=== PATIENT | female | born 1990 | race Caucasian/White ===

== ENCOUNTER → 2017-09-20 | Outpatient (CLI) | payer OTHER ==
[~2017-09-20] MED LIST: CLR10 PO; FLNIN NAE; LEVOIUD
== END | disposition home or self-care (01) ==
LOC: C.LABSPEC 11:03
PROVIDERS: ATTEND Obstetrics & Gynecology
DX: Z34.81 Encounter for supervision of other normal pregnancy, first trimester (principal); Z3A.00 Weeks of gestation of pregnancy not specified

== ENCOUNTER → 2017-09-28 | Outpatient (CLI) | payer BC ==
[2017-09-28 16:18] LABS: BASO % 0.2 %; BASO ABS # 0.02 K/uL (0-0.2); EOS % 0.8 %; EOS ABS # 0.07 K/uL (0-0.5); HEMATOCRIT 38.3 % (37-47); HEMOGLOBIN 13.2 g/dL (12.0-16.0); IG# 0.02 K/uL (0.00-0.02); LYMPH % 17.6 %; LYMPH ABS # 1.58 K/uL (1.2-3.4); MEAN CELL VOLUME 91.4 fL (80-100); MEAN CORPUSCULAR HEMOGLOBIN 31.5 pg (25-34); MEAN CORPUSCULAR HGB CONC 34.5 g/dl (32-36); MEAN PLATELET VOLUME 10.4 fL (7.4-10.4); MONO % 4.9 %; MONO ABS # 0.44 K/uL (0.11-0.59); NEUT % 76.3 %; NEUT ABS # 6.83 K/uL (1.4-6.5); PLATELET COUNT 235 K/uL (130-400); RED CELL DISTRIBUTION WIDTH CV 12.4 % (11.5-14.5); WHITE BLOOD COUNT 8.96 K/uL (4.8-10.8)
== END | disposition home or self-care (01) ==
LOC: C.LAB1850 15:36
PROVIDERS: ATTEND Obstetrics & Gynecology
DX: Z34.81 Encounter for supervision of other normal pregnancy, first trimester (principal)

== ENCOUNTER → 2017-09-28 | Outpatient (CLI) | payer BC | END | disposition home or self-care (01) | LOC: C.PAPS 18:17 | PROVIDERS: ATTEND Obstetrics & Gynecology | DX: Z34.81 Encounter for supervision of other normal pregnancy, first trimester (principal); R87.616 Satisfactory cervical smear but lacking transformation zone ==

== ENCOUNTER 2018-04-23 07:51 | Inpatient (IN) ==
[2018-04-23] MEDS ORDERED: LACTATED RINGER'S 1,000 ML IV PRN ×3 (08:24→16:14)
[2018-04-23] MEDS ORDERED: OXYTOCIN 30 UNITS/500 ML BAG IV PRN ×2 (08:24)
[2018-04-23 08:47] LABS: Hematocrit (blood only) 31.7 % (37-47); Hemoglobin 10.2 g/dL (12.0-16.0); Mean Corpuscular Volume 83.6 fL (80-100); Platelet Count 231 K/uL (130-400); RDW Coefficient of Variation 13.5 % (11.5-14.5); Red Blood Count 3.79 M/uL (4.2-5.4); White Blood Count 9.49 K/uL (4.8-10.8)
[2018-04-23] MEDS: LACTATED RINGER'S 1,000 ML IV SCH ×2 (09:00→17:20)
[2018-04-23 09:04] LABS: Mean Corpuscular Hgb Conc 32.2 g/dL (32-36)
--- NOTE | 2018-04-23 09:38 | History & Physical Report ---
Date of Service April 23, 2018 Assessment & Plan (1) Encounter for induction of labor: Pt is a 27 year old at 39+1 for induction of labor 2/2 hx of fast labor with GBS + mother. - Admission cervical exam 75/-2 - LR @ 125 - FHT Cat 1 - Pitocin 30 units in 500 mls @ 1 mls/hr -> up by 2 - Monitor FHT/toco - Monitor BP - Routine labor care - Anticipate Vaginal , Expectant management History of Present Illness Primary Care Provider: NO PCP Pt is a 27 year old with lmp of 07/27/2017 was discordant with 1st trimester ultrasound on 10/30/2017 at final EDC of 04/15/2018 who presents at 41+1 for induction of labor for post term gestation. She notes some abd pressure but denies contractions. Currently denies nausea, vomiting, RUQ pain, swelling, headache, blurred vision, vaginal bleeding, or decreased movement. course was significant for Arnold chiari type 1. Cervical exam in the office on 04/20 @ 40+5 was 2/75/-3, today 275/-2. Pt resting comfortably in bed no acute complaints. labs First Visit: 9+0 Weight Gain: 28.09 lbs O+ antibody neg Last HGB: 11.3 01/23/2018 DM screen:88 01/23/2018 Last U/S @ 38 weeks showed cephalic Rubella Immune HIV neg Pap neg 09/28/17 EGA:41+1 BP Range 136/70-100/60 U/A: mixed molly GBS negative RPR Negative HBsAG Negative GC/ Chlamydia negative Allergies Allergy/AdvReac Type Severity Reaction Status Date / Time No Known Allergies Allergy Mild Verified 03/03/09 19:43 Home Medications Home Medications Medication Instructions Recorded Confirmed Type MIRENA #0 11/09/10 History Fluticasone Propionate (Flonase 2 spry ASTON DAILY #10 01/04/11 Rx Nasal [place] *) Loratadine (Claritin) 10 mg PO DAILY #14 01/04/11 Rx None (Patient States No Home Meds) #0 01/04/11 History Patient History Social History Preferred Language: Kosovan Communication Ability: Effective 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 Galvan induced SGA [employer] History GYNHX: menearche @ 16, monthly cycles 28 days, normal amount and duration, neg pap 2009 ascus, no hx PID or STDS PMHX: wisdom teeth extraction, Chiari malformation 2008 Varicella IgG +, Lives with cat spouse changed litter Allergies: NKDA Review of Systems All systems reviewed & are unremarkable except as noted in HPI & below Physical Exam Vital Signs (Past 24 Hours): Last Vital Signs Temp 37.2 C 04/23/18 08:14 Pulse 99 H 04/23/18 08:14 Resp 18 04/23/18 08:14 BP 129/85 04/23/18 08:14 Constitutional: WD/WN, vitals as above Eyes: normal visual davila by confrontation Respiratory: normal respiratory effort, lungs clear to auscultation Cardiovascular: RRR, no murmur, no edema Extremities: no calf tenderness Gastrointestinal (Abdomen): normal bowel sounds, soft, nontender, no hepatosplenomegaly (gravid belly) Skin: no rashes, warm and dry Results & Data Laboratory Results 04/23/18 Range/Units 08:35 WBC 9.49 (4.8-10.8) K/uL RBC 3.79 L (4.2-5.4) M/uL Hgb 10.2 L (12.0-16.0) g/dL Hct 31.7 L (37-47) % MCV 83.6 (80-100) fL MCH 26.9 (25-34) pg MCHC 32.2 (32-36) g/dL RDW Std Deviation 41.0 (36.4-46.3) fL RDW Coeff of Del 13.5 (11.5-14.5) % Plt Count 231 (130-400) K/uL MPV 10.0 (7.4-10.4) fL Medications Administered Current Inpatient Medications Lactated Ringer's (Lr) 1,000 mls @ 999 mls/hr IV .Q1H1M PRN PRN Reason: (Pre-Anesthesia) Stop: 05/23/18 08:23 Lactated Ringer's (Lr) 1,000 mls @ 125 mls/hr IV .Q8H MALINA Stop: 04/25/18 08:29 Last Admin: 04/23/18 09:00 Dose: 125 mls/hr Documented by: Oxytocin (Pitocin) 30 units in 500 mls @ 1 mls/hr IV .Q24H PRN; Protocol PRN Reason: Labor Induction/Augmentation Stop: 04/25/18 08:23 Last Admin: 04/23/18 09:24 Dose: 0.06 units/hr, 1 mls/hr Documented by: Oxytocin (Pitocin) 30 units in 500 mls @ 333.333 mls/hr IV .Q1H30M PRN; Protocol PRN Reason: Bleeding Control Stop: 05/23/18 08:23 Lactated Ringer's (Lr) 1,000 mls @ 999 mls/hr IV .Q1H1M PRN PRN Reason: Tachysystole Stop: 04/25/18 08:23 Code Status & VTE Plan Code Status Full Code Resident Activity Tracking Resident Involvement: Resident Care Provided Care Provided: Adult Hospital Medicine
--- NOTE | 2018-04-23 14:46 | Labor Progress Brief Note ---
Date of Service April 23, 2018 Subjective Tolerating contractions well Assessment & Plan (1) Encounter for induction of labor: IOL due to post term Continue current management Physical Exam Vital Signs (Past 24 Hours): Last Vital Signs Temp 36.5 C 04/23/18 12:00 Pulse 68 04/23/18 11:56 Resp 18 04/23/18 12:00 BP 120/75 04/23/18 11:56 Physical Exam: FHT Cat 1 [place] Q2m Pit @ 11 Cvx /-2 AROM Clear
[2018-04-23] MEDS ORDERED: BUPIVACAINE 0.25% 30 ML VIAL ONE (14:57)
[2018-04-23] MEDS ORDERED: fentaNYL 2MCG/ML ROPIV 1.25MG/ML 100 ML BAG EPI ONE (14:58)
[2018-04-23] MEDS ORDERED: ePHEDrine sulfate 50 MG/ML AMP ONE (14:58)
[2018-04-23] MEDS ORDERED: fentaNYL citrate 100 MCG/2 ML VIAL ONE (14:58)
--- NOTE | 2018-04-23 15:27 | Anesthesiology Consultation ---
Date of Service April 23, 2018 Assessment & Plan Chart Review Chart Review: Patient NOT seen in Pre Admission Testing and Acceptable Risk for Labor Epidural Consults Requested none ASA ASA2 Proposed Anesthesia Anesthesia Type: Labor Epidural Risk / Benefits Reviewed With: PT / POA / Parent / Guardian, Accepts Plan and Informed Consent Obtained NPO Date Last Intake of Fluids: 04/23/18 Time Last Intake of Fluids: 15:30 Last Intake of Fluids Comment: Ice chips Date Last Intake of Solids: 04/23/18 Time Last Intake of Solids: 07:00 History Height/Weight Height: 5 ft 7 in Weight: 80.739 kg Allergies Allergy/AdvReac Type Severity Reaction Status Date / Time No Known Allergies Allergy Mild Verified 03/03/09 19:43 Medications Home Medications Medication Instructions Recorded Confirmed Last Taken vit-iron fum-folic ac 1 tab PO DAILY 04/23/18 04/23/18 04/22/18 09:00 [ Vitamin] Active Medications Generic Name Dose Route Start Last Admin Trade Name Freq PRN Reason Stop Dose Admin Lactated Ringer's 1,000 mls @ 125 mls/hr 04/23/18 08:30 04/23/18 09:00 Lr IV 04/25/18 08:29 125 mls/hr .Q8H MALINA Administration Oxytocin 30 units in 500 mls @ 11 mls/hr 04/23/18 08:24 04/23/18 12:05 Pitocin IV 04/25/18 08:23 0.66 units/hr .Q24H PRN 11 mls/hr Labor Induction/Augmentation Titration Protocol 0.66 UNITS/HR Past Anesthesia History No Family Hx of Anesthesia Complications Motion Sickness Screening History of Motion Sickness: No Social History Smoking Status: Former smoker Do You Dip or Chew Tobacco: No Hx Alcohol Use: No Hx Substance Use: No Exercise / Class Metabolic Activity III < 4 Walking/Shop/Light housework Negative for chest pain or shortness of breath. Review of Systems Patient denies numbness, tingling or weakness in his lower extremities. Patient denies numbness, tingling or weakness in upper extremities. Patient denies history of abnormal bleeding or bleeding disorder. Patient terrance es active use of anticoagulants other than low dose aspirin. Patient denies active symptoms of GERD. Physical Exam Vital Signs Last Vital Signs Temp 36.5 C 04/23/18 12:00 Pulse 68 04/23/18 11:56 Resp 18 04/23/18 12:00 BP 120/75 04/23/18 11:56 Constitutional not obese (Gravid uterus) ENMT Mouth: no TMJ abnormality and oral opening not small Thyromental Distance: > or= 3.5 Finger Breadths Mallampati Class: I Neck normal visual inspection; neck extension not limited Respiratory normal respiratory effort Auscultation: lungs clear to auscultation bilaterally Cardiovascular Rate/Rhythm: regular rate and regular rhythm Heart Sounds: no murmur Psychiatric A+Ox3, euthymic affect Orientation: alert and oriented x 3 Testing Laboratory Results 04/23/18 08:35
[2018-04-23] MEDS ORDERED: NALBUPHINE HCL INJ 10 MG/ML AMP IV PRN (16:14)
[2018-04-23] MEDS ORDERED: NALOXONE HCL 1 MG in SODIUM CHLORIDE 0.9% 1000ML 1,000 ML IV PRN (16:14)
[2018-04-23] MEDS ORDERED: ONDANSETRON INJ 2 MG/ML 2 ML VIAL IV PRN (16:14)
[2018-04-23] MEDS ORDERED: fentaNYL 2MCG/ML ROPIV 1.25MG/ML 100 ML BAG EPI PRN (16:14)
[2018-04-23] MEDS ORDERED: NALOXONE HCL 0.4 MG/1 ML VIAL/CARP IV PRN (16:14)
[2018-04-23] MEDS ORDERED: ePHEDrine sulfate 50 MG/ML AMP IV PRN (16:14)
[2018-04-23] MEDS ORDERED: DiphenhydrAMINE HCL 50 MG/ML VIAL IV PRN (16:14)
--- NOTE | 2018-04-23 22:28 | Procedure Note ---
Vaginal Delivery Summary Date of Service April 23, 2018 Patient pushed to deliver a viable male infant in DOA position. Head restituted occiput to maternal R. A very tight nuchal cord was reduced over the infant's head. The next push delivered the shoulders and body. Although the infant made one respiratory effort immediately upon emergence, the body was limp and pale. Umbilical cord was clamped and cut and the infant was taken to the warmer for nursing attention. Dr. Rosario joined in the resuscitation efforts; see his notes for details. The placenta delivered spontaneously and was intact with a 3VC. No lacerations of the cervix, vagina or perineum required repair. Of note, a small window in the labia minora at their apex just beneath the clitoris became evident during the phase. This was fully epithelialized and not new; very likely it represented healed laceration from prior delivery. This broke open during the current , and is hemostatic / did not require repair, as it is anatomically normal in its current opened state. The fundus is firm and lochia is minimal at present.
[2018-04-23] MEDS ORDERED: IBUPROFEN 600 MG TAB PO ONE (23:37)
[2018-04-24] MEDS ORDERED: BENZOCAINE 20% AER SPR 82.5 GM CAN EXT PRN (00:40)
[2018-04-24] MEDS ORDERED: OXYCODONE/ACETAMINOPHEN 5mg/325mg TAB PO PRN (00:40)
[2018-04-24] MEDS ORDERED: SUPERCREAM 0.870% 15 GM JAR EXT PRN (00:40)
[2018-04-24] MEDS ORDERED: HYDROCORTISONE ACETATE 25 MG SUPP PR PRN (00:40)
[2018-04-24] MEDS ORDERED: DIPHTHERIA/TETANUS/PERTUSSIS 0.5 ML SYR/VIAL IM ONE (00:40)
--- NOTE | 2018-04-24 02:43 | Anesthesia Procedure Note ---
Date of Service April 24, 2018 Anesthesia Post Epidural Note Vital Signs Vital Signs: Temp Pulse Resp BP Pulse Ox 37.1 C 91 H 18 131/79 100 04/24/18 00:35 04/24/18 00:35 04/24/18 00:35 04/24/18 00:35 04/23/18 22:17 Pain Intensity Lower Abdomen: Pain Intensity: 0 Notes Mental Status: alert / awake / arousable and participated in evaluation Nausea / Vomiting: adequately controlled Pain: adequately controlled Airway Patency, RR, SpO2: stable & adequate BP & HR: stable & adequate Hydration State: stable & adequate Neuraxial Anesthesia: was administered and sensory block is resolving Anesthetic Complications: no major complications apparent and Pt Satisfied with anesthetic care Epidural: Removed without complications and With tip intact
[2018-04-24] MEDS: IBUPROFEN 600 MG TAB PO PRN ×4 (04:09→20:43)
--- NOTE | 2018-04-24 06:43 | Obstetrical Progress Note ---
Date of Service April 24, 2018 Assessment & Plan (1) Status post vaginal delivery: Patient is a 27 year old PPD 1 s/p -Vital signs WNL bp 118/79 T36.7, -no si/sx of anemia. -Pt is doing clinically well -Continue to encourage ambulation as tolerated, Monitor and control pain with m otrin prn, Continue diet as tolerated. -Continue to support and encourage breast feeding -Routine care Supervising Physician Co-Signing Physician Notes I have examined the patient and agree with the resident note above. Subjective Pt sitting in bed with dad and baby resting on the couch at the foot of the bed. No acute events overnight. Patient is tolerating her diet, ambulating, passing gas and voiding, still no bm. Reports significant lochia although it is decreasing. Pt had elevated BP overnight endorsed nausea but specifically denied H/A, chest pain, RUQ pain, palpitations and uti syx. No concerns at this time pain is well controlled Physical Exam Vital Signs (Past 24 Hours): Last Vital Signs Temp 36.7 C 04/24/18 03:52 Pulse 79 04/24/18 03:52 Resp 18 04/24/18 03:52 BP 118/79 04/24/18 03:52 Pulse Ox 100 04/23/18 22:17 Constitutional: WD/WN, vitals as above Respiratory: normal respiratory effort, lungs clear to auscultation Cardiovascular: RRR, no murmur, no edema Extremities: no calf tenderness Gastrointestinal (Abdomen): normal bowel sounds, soft, nontender, no hepatosplenomegaly (Firm below the umbilicus) Skin: no rashes, warm and dry Results & Data Laboratory Results 04/23/18 Range/Units 08:35 WBC 9.49 (4.8-10.8) K/uL RBC 3.79 L (4.2-5.4) M/uL Hgb 10.2 L (12.0-16.0) g/dL Hct 31.7 L (37-47) % MCV 83.6 (80-100) fL MCH 26.9 (25-34) pg MCHC 32.2 (32-36) g/dL RDW Std Deviation 41.0 (36.4-46.3) fL RDW Coeff of Del 13.5 (11.5-14.5) % Plt Count 231 (130-400) K/uL MPV 10.0 (7.4-10.4) fL Medications Administered Current Inpatient Medications Acetaminophen (Tylenol) 650 mg PO Q6H PRN PRN Reason: Pain/BLANC/Fever Stop: 05/24/18 00:39 Benzocaine (Dermoplast Pain Relieving [place]) 1 appln EXT PRN PRN PRN Reason: Perineal Discomfort Stop: 05/24/18 00:39 Last Admin: 04/24/18 03:41 Dose: 1 appln Documented by: Cocaine HCl (Supercream 0.870%) 1 gm EXT BID PRN PRN Reason: Hemorrhoidal Inflammation Stop: 05/08/18 00:39 Docusate Sodium (Colace) 100 mg PO BID [facility] Stop: 05/24/18 08:59 Hydrocortisone (Anusol Hc) 25 mg [place] BID PRN PRN Reason: Hemorrhoidal Inflammation Stop: 05/24/18 00:39 Oxytocin (Pitocin) 30 units in 500 mls @ 333.333 mls/hr IV .Q1H30M PRN; Protocol PRN Reason: Bleeding Control Stop: 05/23/18 08:23 Ibuprofen (Motrin) 600 mg PO Q4H PRN PRN Reason: Pain/BLANC/Cramping/Fever Stop: 05/24/18 00:39 Last Admin: 04/24/18 04:09 Dose: 600 mg Documented by: Oxycodone/Acetaminophen (Percocet 5mg/325mg) 1 tab PO Q4H PRN PRN Reason: Pain not relieved by... Stop: 05/08/18 00:39 Prenat Multivit/[place]/Iron/Folic Ac ( Vitamin) 1 tab PO QAM [facility] Stop: 05/24/18 08:59 Resident Activity Tracking Resident Involvement: Resident Care Provided Care Provided: Adult Hospital Medicine
[2018-04-24 07:26] LABS: Hematocrit (blood only) 32.8 % (37-47); Hemoglobin 10.6 g/dL (12.0-16.0); Mean Corpuscular Hgb Conc 32.3 g/dL (32-36); Mean Platelet Volume 9.9 fL (7.4-10.4); Platelet Count 240 K/uL (130-400); RDW Coefficient of Variation 13.3 % (11.5-14.5); RDW Standard Deviation 40.6 fL (36.4-46.3); Red Blood Count 3.95 M/uL (4.2-5.4); White Blood Count 15.02 K/uL (4.8-10.8)
[2018-04-24] MEDS: DOCUSATE SODIUM 100 MG CAP PO SCH ×2 (07:43→20:43)
[2018-04-24] MEDS: PRENATAL VITAMIN 1 TAB PO SCH (07:43)
[2018-04-24] MEDS: ACETAMINOPHEN 325 MG TAB PO PRN (16:08)
[2018-04-25] MEDS: ACETAMINOPHEN 325 MG TAB PO PRN ×3 (00:45→15:39)
[2018-04-25] MEDS: IBUPROFEN 600 MG TAB PO PRN ×3 (00:46→15:38)
--- NOTE | 2018-04-25 07:49 | Obstetrical Progress Note ---
Date of Service April 25, 2018 Assessment & Plan (1) Status post vaginal delivery: Patient is a 27 year old PPD 1 s/p -Vital signs WNL bp 133/80 T37.3, -Hemoglobin is 10.6 on ppd1 down from 10.2 on admission. no si/sx of anemia. -Pt is doing clinically well -Continue to encourage ambulation as tolerated, Monitor and control pain with motrin prn, Continue diet as tolerated. -Plans to bottle feed -Counseled patient on discharge instructions including Vaginal bleeding, fevers, followup, lifting restrictions, breast feeding, vitamins, and nothing in the vagina for 6 weeks. Pt was agreeable -Plan for d/c today Supervising Physician Co-Signing Physician Notes Resident Physician Supervision Note: I interviewed and examined the patient. Discussed with Dr. Victor Hugo Fraire and agree with findings and plan as documented in the note. Any exceptions or clarifications are listed here: [None] Documented By: Harper More MD, FACOG Subjective Pt sitting in bed with dad and baby resting on the couch at the foot of the bed. No acute events overnight. Patient is tolerating her diet, ambulating, passing gas and voiding, still no bm. Reports decreasing lochia. denies h/a, palpitations, and uti syx. No concerns at this time pain is well controlled Physical Exam Vital Signs (Past 24 Hours): Last Vital Signs Temp 37.3 C 04/24/18 23:50 Pulse 75 04/24/18 23:50 Resp 18 04/24/18 23:50 BP 133/80 04/24/18 23:50 Pulse Ox 99 04/24/18 20:00 Constitutional: WD/WN, vitals as above Eyes: normal visual davila by confrontation Respiratory: normal respiratory effort, lungs clear to auscultation Cardiovascular: RRR, no murmur, no edema Extremities: no calf tenderness Gastrointestinal (Abdomen): normal bowel sounds, soft, nontender, no hepatosplenomegaly (Firm below the umbilicus) Skin: no rashes, warm and dry Results & Data Medications Administered Current Inpatient Medications Acetaminophen (Tylenol) 650 mg PO Q6H PRN PRN Reason: Pain/BLANC/Fever Stop: 05/24/18 00:39 Last Admin: 04/25/18 00:45 Dose: 650 mg Documented by: Benzocaine (Dermoplast Pain Relieving [place]) 1 appln EXT PRN PRN PRN Reason: Perineal Discomfort Stop: 05/24/18 00:39 Last Admin: 04/24/18 03:41 Dose: 1 appln Documented by: Cocaine HCl (Supercream 0.870%) 1 gm EXT BID PRN PRN Reason: Hemorrhoidal Inflammation Stop: 05/08/18 00:39 Docusate Sodium (Colace) 100 mg PO BID [facility] Stop: 05/24/18 08:59 Last Admin: 04/24/18 20:43 Dose: 100 mg Documented by: Hydrocortisone (Anusol Hc) 25 mg [place] BID PRN PRN Reason: Hemorrhoidal Inflammation Stop: 05/24/18 00:39 Oxytocin (Pitocin) 30 units in 500 mls @ 333.333 mls/hr IV .Q1H30M PRN; Protocol PRN Reason: Bleeding Control Stop: 05/23/18 08:23 Ibuprofen (Motrin) 600 mg PO Q4H PRN PRN Reason: Pain/BLANC/Cramping/Fever Stop: 05/24/18 00:39 Last Admin: 04/25/18 00:46 Dose: 600 mg Documented by: Oxycodone/Acetaminophen (Percocet 5mg/325mg) 1 tab PO Q4H PRN PRN Reason: Pain not relieved by... Stop: 05/08/18 00:39 Prenat Multivit/Agricultural Extension Agent/Iron/Folic Ac ( Vitamin) 1 tab PO QAM [facility] Stop: 05/24/18 08:59 Last Admin: 04/24/18 07:43 Dose: 1 tab Documented by: Resident Activity Tracking Resident Involvement: Resident Care Provided Care Provided: Adult Hospital Medicine
[2018-04-25] MEDS: DOCUSATE SODIUM 100 MG CAP PO SCH (08:39)
[2018-04-25] MEDS: PRENATAL VITAMIN 1 TAB PO SCH (08:41)
== END 2018-04-25 16:55 | disposition home or self-care (01) | DRG 807 ==
LOC: 4S1 08:00 → 4S2 04-24 00:35